=== PATIENT | male | born 1960 | race Caucasian/White ===

== ENCOUNTER 2019-08-31 10:26 | Emergency (ER) | payer OTHER ==
--- NOTE | 2019-08-31 12:45 | RAD REPORT ---
EXAM DESCRIPTION: US - Extremity Venous Uni Ltd - 08/31/2019 12:30 pm CLINICAL HISTORY: pain, swellingleft leg COMPARISON: None. TECHNIQUE: Real-time sonographic evaluation of the left lower extremity deep venous system was perfo rmed. FINDINGS: Normal compressibility, flow augmentation, phasic flow and spontaneous flow are identified in the left lower extremity common femoral, superficial femoral, popliteal and posterior tibial vein s. No intraluminal filling defects seen. IMPRESSION: No DVT in the left lower extremity.
[2019-08-31 13:06] LABS: Absolute Lymphocytes (CBC) 1.3 K/uL (0.7-4.9); Hematocrit 46.5 % (39.6-49.0); Lymphocytes % 13.6 % (15.3-44.8); MPV 7.5 fL (7.6-11.3); RBC Red Blood Cell Count 5.06 M/uL (4.33-5.43)
[2019-08-31 13:26] LABS: Albumin 3.9 g/dL (3.4-5.0); Bilirubin Total 1.3 mg/dL (0.2-1.0); Protein, Total 8.3 g/dL (6.4-8.2)
--- NOTE | 2019-08-31 13:38 | EDPHYS ---
Physician Documentation [facility] Name: Patrick Santiago Age: 58 yrs Sex: Male : 1960 Arrival Date: 08/31/2019 Time: 10:31 Bed 18 Private MD: ED Physician Rafa Álvarez HPI: 08/30 11:28 This 58 yrs old Male presents to ER via Ambulatory with complaints of Insect jmm Bite, Wound Infection. 11:28 The patient presents with pain, that is acute, swelling. Onset: The symptoms/episode jmm began/occurred gradually, 2 day(s) ago. Modifying factors: The symptoms are alleviated by nothing. the symptoms are aggravated by nothing. Associated signs and symptoms: Pertinent positives: fever, swelling, warmth. This is a 58 year old male with a history of gout and htn that presents to the ED with complaints of left lower leg swelling, redness beginning 2 days ago. Patient states having fever and chills. Patient states the character is different than previous episodes of gout. . Historical: - Allergies: 10:48 No Known Allergies; ss - PMHx: 10:48 Gout; Hypertension; ss - Immunization history:: Adult Immunizations up to date. - Social history:: Smoking status: Patient reports the use of cigarette tobacco products, occasional cigar. ROS: 11:28 Cardiovascular: Negative for chest pain, palpitations, and edema, Respiratory: Negative jmm for shortness of breath, cough, wheezing, and pleuritic chest pain, Abdomen/GI: Negative for abdominal pain, nausea, vomiting, diarrhea, and constipation. 11:28 Constitutional: Positive for body aches, chills, fever. 11:28 MS/extremity: Positive for pain, swelling. 11:28 All other systems are negative. Exam: 11:28 Constitutional: This is a well developed, well nourished patient who is awake, alert, jmm and in no acute distress. Head/Face: atraumatic. Eyes: EOMI, no conjunctival erythema appreciated ENT: Moist Mucus Membranes Neck: Trachea midline, Supple Chest/axilla: Normal chest wall appearance and motion. Cardiovascular: Regular rate and rhythm. No edema appreciated Respiratory: Normal respirations, no respiratory distress appreciated Abdomen/GI: Non distended, soft Back: Normal ROM 11:28 Musculoskeletal/extremity: full dorsalis pulse, compartments are soft, NVI. 11:28 Skin: erythema and induration appreciated to the left lower leg, worse on the dorsal surface of the left foot. 11:28 Neuro: Orientation: is normal, Mentation: is normal, Memory: is normal. 11:28 Psych: Behavior/mood is pleasant, cooperative. Vital Signs: 10:47 BP 171 / 95; Pulse 78; Resp 17; Temp 99.5(TE); Pulse Ox 96% on R/A; Weight 158.76 kg; ss Height 5 ft. 9 in. (175.26 cm); Pain 5/10; 10:47 Body Mass Index 51.69 (158.76 kg, 175.26 cm) ss MDM: 11:16 Patient medically screened. [facility] 13:35 Data reviewed: vital signs, nurses notes. Counseling: I had a detailed discussion with stewart the patient and/or guardian regarding: the historical points, exam findings, and any diagnostic results supporting the discharge/admit diagnosis, lab results, radiology results, the need for outpatient follow up, to return to the emergency department if symptoms worsen or persist or if there are any questions or concerns that arise at home. ED course: Patient is alert and non toxic in appearance in the ED. Patient is advised to follow up with pcp and otherwise given strict return precautions. Labs WNL. PE consistent with cellulitis of the left lower leg. . 08/30 11:25 Order name: CBC with Diff; Complete Time: 13:12 [facility] 08/30 11:25 Order name: CMP; Complete Time: 13:35 [facility] 08/30 11:25 Order name: Procalcitonin; Complete Time: 13:35 [facility] 08/30 11:25 Order name: Lactate; Complete Time: 13:35 [facility] 08/30 11:25 Order name: Blood Culture Adult (2) [facility] 08/30 11:25 Order name: US Extremity Venous Unilateral Ltd; Complete Time: 12:52 [facility] 08/30 11:25 Order name: Saline Lock; Complete Time: 13:06 [facility] Administered Medications: No medications were administered Disposition: 19:09 Co-signature as Attending Physician, Rafa Álvarez MD. ma2 Disposition: 08/31/19 13:37 Discharged to Home. Impression: Cellulitis of left lower limb. - Condition is Stable. - Discharge Instructions: Cellulitis, Adult. - Prescriptions for Doxycycline Hyclate 100 mg Oral Tablet - take 1 tablet by ORAL route every 12 hours; 20 tablet. Bactrim DS 800- 160 mg Oral Tablet - take 1 tablet by ORAL route every 12 hours for 10 days; 20 tablet. - Medication Reconciliation Form, Thank You Letter, Antibiotic Education, Prescription Opioid Use form. - Follow up: Private Physician; When: 2 - 3 days; Reason: Recheck today's complaints, Continuance of care, Re-evaluation by your physician. Signatures: Dispatcher [employer] EDMS Reji Hinton PA PA jmm Smirch, Shelby, RN RN Rafa Álvarez MD MD [facility] Ami Fregoso RN RN Corrections: (The following items were deleted from the chart) 14:13 13:37 08/31/2019 13:37 Discharged to Home. Impression: Cellulitis of left lower limb. ah Condition is Stable. Forms are Medication Reconciliation Form, Thank You Letter, Antibiotic Education, Prescription Opioid Use. Follow up: Private Physician; When: 2 - 3 days; Reason: Recheck today's complaints, Continuance of care, Re-evaluation by your physician. stewart
--- NOTE | 2019-08-31 13:38 | ER ---
Nurse's Notes [facility] Name: Patrick Santiago Age: 58 yrs Sex: Male : 1960 Arrival Date: 08/31/2019 Time: 10:31 Bed 18 Private MD: Diagnosis: Cellulitis of left lower limb Presentation: 08/30 10:47 Chief complaint: Patient states: redness and swelling to L foot that began 4-5 days ss ago. Coronavirus screen: Surgical mask placed on patient. Patient moved to private room, placed in contact and droplet isolation with eye protection until further assessment. Patient denies a cough. Patient denies shortness of breath or difficulty breathing. Patient reports a measured and/or subjective temperature greater than 100.4F. Patient denies travel on a cruise ship or to a country the [facility] currently lists as an affected area. Patient denies contact with known and/or suspected case of COVID-19. Ebola Screen: Patient denies exposure to infectious person. Patient denies travel to an Ebola-affected area in the 21 days before illness onset. Initial Sepsis Screen: Does the patient meet any 2 criteria? No. Patient's initial sepsis screen is negative. Does the patient have a suspected source of infection? Yes: Skin breakdown/wound. Risk Assessment: Do you want to hurt yourself or someone else? Patient reports no desire to harm self or others. Onset of symptoms was August 28, 2019. 10:47 Method Of Arrival: Ambulatory ss 10:47 Acuity: KATELYN 3 ss Historical: - Allergies: 10:48 No Known Allergies; ss - PMHx: 10:48 Gout; Hypertension; ss - Immunization history:: Adult Immunizations up to date. - Social history:: Smoking status: Patient reports the use of cigarette tobacco products, occasional cigar. Screenin:30 Abuse screen: Denies threats or abuse. Nutritional screening: No deficits noted. Tuberculosis screening: No symptoms or risk factors identified. Fall Risk None identified. Assessment: 11:30 General: Appears in no apparent distress. Behavior is calm, cooperative, appropriate ss for age. Pain: Complains of pain in lateral side of left foot, instep of left foot and dorsum of left foot Pain began 1 day ago. Neuro: Level of Consciousness is awake, alert, obeys commands, Oriented to person, place, time, situation, Appropriate for age. Cardiovascular: Capillary refill < 3 seconds Patient's skin is warm and dry. Respiratory: Airway is patent Respiratory effort is even, unlabored. GI: Abdomen is obese. Derm: Skin is intact, Skin is red, Skin temperature is warm swollen. 12:30 Reassessment: Patient and/or family updated on plan of care and expected duration. Pain ah level reassessed. Patient is alert, oriented x 3, equal unlabored respirations, skin warm/dry/pink. Awaiting on results from lab and radiology. 13:30 Reassessment: Patient and/or family updated on plan of care and expected duration. Pain ah level reassessed. No needs voiced at this time. Vital Signs: 10:47 BP 171 / 95; Pulse 78; Resp 17; Temp 99.5(TE); Pulse Ox 96% on R/A; Weight 158.76 kg; ss Height 5 ft. 9 in. (175.26 cm); Pain 5/10; 10:47 Body Mass Index 51.69 (158.76 kg, 175.26 cm) ED Course: 10:31 Patient arrived in ED. fj1 10:37 Reji Hinton PA is PHCP. jmm 10:37 Rafa Álvarez MD is Attending Physician. jmm 10:48 Triage completed. 10:48 Arm band placed on right wrist. 12:01 Ami Fregoso, RN is Primary Nurse. ah 12:30 Extremity Venous Unilateral Ltd In Process Unspecified. EDMS 12:45 Inserted saline lock: 20 gauge in right antecubital area, using aseptic technique. jp3 Blood collected. Patient maintains SpO2 saturation greater than 95% on room air. 12:45 Initial lab(s) drawn, by nh, sent to lab. First set of blood cultures drawn by me. jp3 12:55 Second set of blood cultures drawn by me. jp3 13:06 Bed in low position. Call light in reach. Side rails up X 1. Warm blanket given. Verbal jp3 reassurance given. Pulse ox on. NIBP on. 14:00 No provider procedures requiring assistance completed. IV discontinued, intact, ah bleeding controlled, No redness/swelling at site. Pressure dressing applied. Administered Medications: No medications were administered Outcome: 13:37 Discharge ordered by . jmm 14:13 Patient left the ED. ah 14:15 Discharged to home ambulatory. 14:15 Condition: good 14:15 Discharge instructions given to patient, Instructed on discharge instructions, follow up and referral plans. Demonstrated understanding of instructions, follow-up care, medications, Prescriptions given X 2. Signatures: Dispatcher [employer] EDReji Grande PA PA jmm Smirch, Shelby, RN RN Walter Swanson jp3 Lalo Capps fj1 Ami Fregoso, RN RN
[2019-08-31 14:18] VITALS: BP 171/95; TEMP 99.5; O2SAT 96
== END 2019-08-31 14:13 | disposition home or self-care (01) ==
LOC: ER 10:26
DX: L03.116 Cellulitis of left lower limb (principal); I10 Essential (primary) hypertension; Z72.0 Tobacco use
CPT/HCPCS: 36415; 80053; 83605; 84145; 85025; 87040; 93971; 99284